=== PATIENT | female | born 1985 | race Caucasian/White ===

== ENCOUNTER 2023-10-11 22:00 | Emergency (ER) | payer MEDICARE, SELFPAY ==
[2023-10-11 22:04] VITALS: BP 93/61; PULSE 105; TEMP 36.8; O2SAT 97
--- NOTE | 2023-10-11 22:04 | ECG_ITS ---
The [facility] Test Date: 2023-10-11 Pat Name: ESTELLA LOZADA Department: Room: - Gender: Female Can Feeder: : 1985 Requested By: [id number] Order Number: [id number] Reading MD: SANDRA BLACKMAN Measurements Intervals [place] Rate: 103 P: 106 NC: 184 QRS: 57 QRSD: 78 T: 41 QT: 342 QTc: 402 Interpretive Statements 1120 Sinus tachycardia 9140 abnormal rhythm ECG Compared to ECG 05/11/2022 12:15:08 No significant changes Electronically Signed On 10-13-2023 8:07:54 EDT by SANDRA BLACKMAN
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
[2023-10-11 22:08] LABS: Glucometer 222 mg/dL (74-106)
--- NOTE | 2023-10-11 22:14 | XR_ITS ---
The [address] [address] Patient Name: ESTELLA LOZADA MRN: [id number] date: 1985 Sex: F Assigned Patient Location: ER Current Patient Location: ER Accession/Order Number: [id number] Exam Date: 10/11/2023 22:32 Report Date: 10/11/2023 22:57 At the request of: THONY ROCK Procedure: XR knee RT 3V EXAM: XR knee RT 3V HISTORY: Pain COMPARISON: None. TECHNIQUE: 3 views right knee FINDINGS: Intramedullary pau and screw fixation of the tibia, partially imaged. No acute fracture or aggressive osseous abnormality. Joint spaces and alignment are preserved. No joint effusion. XR/XR knee RT 3V IMPRESSION: No acute osseous abnormality of the right knee Electronically authenticated by: ZANDRA LOPEZ Date: 10/11/2023 22:57
[2023-10-11 22:23] LABS: Hematocrit 39.2 % (36.0-48.0); Hemoglobin 12.1 g/dL (12.0-16.0); Mean Corpuscular HGB Conc 30.9 g/dL (29.9-35.2); Mean Corpuscular Hemoglobin 28.3 pg (26.7-34.0); Mean Corpuscular Volume 91.8 fL (81.0-99.0); Mean Platelet Volume 9.5 fL (9.5-13.5); Platelet Count 248 10^3/uL (150-450); Red Blood Count 4.27 10^6/uL (4.20-5.40); Red Cell Distribution Width 13.2 % (11.0-15.0); White Blood Count 23.6 10^3/uL (4.0-11.0)
--- NOTE | 2023-10-11 22:23 | PC.NURSE ---
Pt. complaining of pain to right knee. Pt. states she is unsure if she fell on her knee. Ice applied to knee to for comfort.
[2023-10-11 22:32] LABS: Anion Gap 18.4; BUN Creatinine Ratio 21.5; Calcium 8.9 mg/dL (8.5-10.1); Carbon Dioxide 20.4 mmol/L (21.0-32.0); Chloride 105 mmol/L (98-107); Estimated GFR (African America 33 (>=60); Estimated GFR (Non-African Ame 28 (>=60); Glucose 137 mg/dL (74-106); Potassium 4.8 mmol/L (3.5-5.1); Sodium 139 mmol/L (136-145)
[2023-10-11] MEDS: 0.9 % SODIUM CHLORIDE 1,000 ML 1000 ML IV (22:42)
[2023-10-11 22:45] VITALS: BP 100/59; PULSE 102; O2SAT 97
[2023-10-11 22:49] VITALS: BP 102/62; PULSE 104
[2023-10-11] MEDS: IBUPROFEN 400 MG TABLET 800 MG PO (22:56)
[2023-10-11 22:58] LABS: Band Neutrophils Absolute 0.9 10^3/uL (0.0-0.3); Lymphocytes Absolute Manual 2.36 10^3/uL (1.20-3.80); Monocytes Absolute Manual 0.23 10^3/uL (0.30-0.80); Segmented Neut Absolute Manual 20.06 10^3/uL (1.4-6.5)
[2023-10-11 22:59] LABS: Toxic Granulation 3+
[2023-10-12 00:02] VITALS: BP 90/56; PULSE 99; O2SAT 100
== END 2023-10-12 00:25 | disposition home or self-care (01) ==
PROVIDERS: Emergency Provider Emergency Medicine; PCP Nurse Practitioner Family
DX: T40.601A Poisoning by unspecified narcotics, accidental (unintentional), initial encounter (principal)
CPT/HCPCS: 36415; 73562; 80048; 85007; 85027; 93005; 99285

== ENCOUNTER 2024-01-20 13:33 | Emergency (ER) | payer MEDICARE, SELFPAY ==
[2024-01-20 13:36] VITALS: BP 125/66; PULSE 82; TEMP 36.7; O2SAT 100; BMI 29.1
--- NOTE | 2024-01-20 13:43 | ED_ITS ---
HPI HPI - General Adult General Chief complaint: Nausea/Vomiting/Diarrhea Stated complaint: WITHDRAWL Time Seen by Provider: 01/20/24 13:37 Source: patient History of Present Illness HPI narrative: 38-year-old female presents for narcotic withdrawal symptoms. She had received her first ever dose of Vivitrol and then she went home and took Percocet. Her symptoms then developed and she was brought in here by squad. She is complaining of nausea and being cold. Related Data Home Medications ?Medication ?Instructions ?Recorded ?Confirmed medroxyprogesterone 150 mg/mL 150 mg IM .Q 3 months 10/11/23 10/11/23 intramuscular syringe Allergies Allergy/AdvReac Type Severity Reaction Status Date / Time No Known Drug Allergies Allergy Verified 10/11/23 22:10 Opioid HPI Opioid Management Most Recent Opioid Data: Last Pain Scale 10 10/11/23 22:56 Review of Systems ROS Narrative A ten point review of systems is negative except as noted above. PFSH PFSH Social History Little interest or pleasure in doing things: not at all Feeling down, depressed, or hopeless: not at all Exam Narrative Exam Narrative: Nurses note and vital signs reviewed and patient is not hypoxic. General: The patient appears restless. Skin: Warm, dry, no pallor noted. There is no rash noted. Head: Normocephalic, atraumatic Eye: Normal conjunctiva, no drainage Ears, Nose, Mouth, and Throat: oral mucosa is moist. Nares patent. Cardiovascular: Regular Rate and Rhythm Respiratory: Patient is in no distress, no accessory muscle use, lungs are clear to auscultation, no wheezing, rales or rhonchi Back: non-tender GI: Soft and nontender Musculoskeletal: The patient has no evidence of calf tenderness, no pitting edema, symmetrical pulses noted bilaterally Neurological: Awake and alert Psychiatric: Cooperative Constitutional Vital Signs, click to edit/add: Last Vital Signs Temp 98.1 F 01/20/24 13:36 Pulse 82 01/20/24 13:36 Resp 20 01/20/24 13:36 BP 125/66 01/20/24 13:36 Pulse Ox 100 01/20/24 13:36 Course Vital Signs Vital signs: Vital Signs Temperature 98.1 F 01/20/24 13:36 Pulse Rate 82 01/20/24 13:36 Respiratory Rate 01/20/24 13:36 Blood Pressure 125/66 01/20/24 13:36 Pulse Oximetry 100 01/20/24 13:36 Temperature 98.1 F 01/20/24 13:36 Pulse Rate 82 01/20/24 13:36 Respiratory Rate 20 01/20/24 13:36 Blood Pressure 125/66 01/20/24 13:36 Pulse Oximetry 100 01/20/24 13:36 Medical Decision Making MDM Narrative Medical decision making narrative: Laboratory analysis is negative. She was given IM Ativan and feels improved and wishes to be discharged home. Findings were discussed with the patient. Differential Diagnosis Differential Diagnosis: Narcotic withdrawal Lab Data Lab results reviewed: Yes I reviewed the patient's lab results Labs: Lab Results 01/20/24 Range/Units 14:02 WBC 10.6 (4.0-11.0) 10^3/uL RBC 3.94 L (4.20-5.40) 10^6/uL Hgb 11.4 L (12.0-16.0) g/dL Hct 34.3 L (36.0-48.0) % MCV 87.1 (81.0-99.0) fL MCH 28.9 (26.7-34.0) pg MCHC 33.2 (29.9-35.2) g/dL RDW 13.5 (11.0-15.0) % Plt Count 238 (150-450) 10^3/uL MPV 10.2 (9.5-13.5) fL Neut % (Auto) 59.7 (43.0-75.0) % Lymph % (Auto) 30.5 (20.5-60.0) % [place] % (Auto) 6.6 (1.7-12.0) % Eos % (Auto) 2.3 (0.9-7.0) % Baso % (Auto) 0.6 (0.2-2.0) % Neut # (Auto) 6.3 (1.4-6.5) 10^3/uL Lymph # (Auto) 3.2 (1.2-3.8) 10^3/uL [place] # (Auto) 0.7 (0.3-0.8) 10^3/uL Eos # (Auto) 0.2 (0.0-0.7) 10^3/uL Baso # (Auto) 0.1 (0.0-0.1) 10^3/uL Abs Immat Gran (auto) 0.03 (0.00-0.03) 10^3/uL Imm/Tot Granulo (auto) 0.3 (0.0-0.5) % Sodium 138 (136-145) mmol/L Potassium 3.6 (3.5-5.1) mmol/L Chloride 108 H (98-107) mmol/L Carbon Dioxide 22.0 (21.0-32.0) mmol/L Anion Gap 11.6 BUN 25.0 H (7.0-18.0) mg/dL Creatinine 0.92 (0.55-1.02) mg/dL Est GFR ( Amer) >60 (>=60) Est GFR (Non-Af Amer) >60 (>=60) BUN/Creatinine Ratio 27.2 Glucose 84 (74-106) mg/dL Calcium 8.7 (8.5-10.1) mg/dL Serum HCG, Qual Negative (NEGATIVE) Discharge Plan Discharge Chief Complaint: Nausea/Vomiting/Diarrhea Clinical Impression: Acute narcotic withdrawal Patient Disposition: Home, Self-Care Time of Disposition Decision: 14:33 Condition: Good Mode of Transportation: Private Vehicle Prescriptions / Home Meds: No Action medroxyprogesterone 150 mg/mL syringe 150 mg IM .Q 3 months Print Language: Swedish Instructions: Narcotic Withdrawal (ED), Narcotic Use Disorder (ED) Referrals: MERLIN MONTOYA [Primary Care Provider] - 1 week
[2024-01-20] MEDS: LORAZEPAM 2 MG/ML VIAL 1 MG IM (14:09)
[2024-01-20 14:11] LABS: Basophils Absolute Auto 0.1 10^3/uL (0.0-0.1); Basophils Percent Auto 0.6 % (0.2-2.0); Eosinophils Absolute Auto 0.2 10^3/uL (0.0-0.7); Eosinophils Percent Auto 2.3 % (0.9-7.0); Hematocrit 34.3 % (36.0-48.0); Hemoglobin 11.4 g/dL (12.0-16.0); Immature Granulocytes Abs Auto 0.03 10^3/uL (0.00-0.03); Immature Granulocytes Pct Auto 0.3 % (0.0-0.5); Lymphocytes Absolute Auto 3.2 10^3/uL (1.2-3.8); Lymphocytes Percent Auto 30.5 % (20.5-60.0); Mean Corpuscular HGB Conc 33.2 g/dL (29.9-35.2); Mean Corpuscular Hemoglobin 28.9 pg (26.7-34.0); Mean Corpuscular Volume 87.1 fL (81.0-99.0); Mean Platelet Volume 10.2 fL (9.5-13.5); Monocytes Absolute Auto 0.7 10^3/uL (0.3-0.8); Monocytes Percent Auto 6.6 % (1.7-12.0); Neutrophils Absolute Auto 6.3 10^3/uL (1.4-6.5); Neutrophils Percent Auto 59.7 % (43.0-75.0); Platelet Count 238 10^3/uL (150-450); Red Blood Count 3.94 10^6/uL (4.20-5.40); Red Cell Distribution Width 13.5 % (11.0-15.0); White Blood Count 10.6 10^3/uL (4.0-11.0)
[2024-01-20 14:19] LABS: Anion Gap 11.6; BUN Creatinine Ratio 27.2; Calcium 8.7 mg/dL (8.5-10.1); Chloride 108 mmol/L (98-107); Estimated GFR (African America >60 (>=60); Estimated GFR (Non-African Ame >60 (>=60); Glucose 84 mg/dL (74-106); Potassium 3.6 mmol/L (3.5-5.1); Sodium 138 mmol/L (136-145)
[2024-01-20 14:21] LABS: HCG Qualitative NEGATIVE (NEGATIVE); Internal Control Within Normal Limits
== END 2024-01-20 15:26 | disposition home or self-care (01) ==
PROVIDERS: Emergency Provider Emergency Medicine; PCP Nurse Practitioner Family
DX: F19.239 Other psychoactive substance dependence with withdrawal, unspecified (principal)
CPT/HCPCS: 36415; 80048; 84703; 85025; 96372; 99285; J2060

== ENCOUNTER 2024-04-20 10:18 | Emergency (ER) | payer MEDICAID, MEDICARE, SELFPAY ==
[2024-04-20 10:21] VITALS: BP 132/79; PULSE 99; TEMP 37.1; O2SAT 99
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
[2024-04-20] MEDS: KETOROLAC TROMETHAMINE 30 MG/ML VIAL 15 MG IM (10:49)
[2024-04-20] MEDS: CEPHALEXIN 500 MG CAPSULE PO (10:49)
[2024-04-20] MEDS: ADACEL DIPH,PERTUSS(ACELL),TET VAC/PF 0.5 ML ADULT SYRINGE IM (10:49)
[2024-04-20] MEDS: SILVER SULFADIAZINE 1% CREAM 25 GM TUBE 1 APPLIC TOPICAL (10:49)
== END 2024-04-20 10:57 | disposition home or self-care (01) ==
PROVIDERS: Emergency Provider Emergency Medicine; PCP Nurse Practitioner Family
DX: T21.25XA Burn of second degree of buttock, initial encounter (principal); X16.XXXA Contact with hot heating appliances, radiators and pipes, initial encounter; Z23 Encounter for immunization
CPT/HCPCS: 90471; 90715; 96372; 99284; J1885